=== PATIENT | male | born 1965 | race Caucasian/White ===

== ENCOUNTER 2022-05-08 15:03 | Emergency (ER) | payer SELFPAY ==
[~2022-05-08] VITALS: Ht 177.8 cm; Wt 90.7 kg
[2022-05-08 15:22] VITALS: BP 167/112
--- NOTE | 2022-05-08 15:30 | NUR ---
PT AMB TO BED 7
--- NOTE | 2022-05-08 15:50 | NUR ---
56YO MALE PT C/O HEADACHE AND DIZZINESS XYESTERDAY. REPORTS SUDDEN ONSET W/ RELIEF AFTER IBUPROFEN AND MOTRIN. STATES BEING RECOMMENDED BY URGENT CARE TO COME TO ER DUE TO HIGH BP OF 217/-. DENIES CHEST PAIN , SOB, N/V/D. PT AAOX4, SPEAKING IN FULL CLEAR SENTENCES. ON MANAGER PERFORMANCE IMPROVEMENT. HX: DENIES NKA
[2022-05-08 15:51] LABS: BASOPHILS % (AUTO) 0.3 % (0.0-2.0); EOSINOPHILS # (AUTO) 0.1 K/uL (0-0.4); EOSINOPHILS % (AUTO) 0.7 % (0.0-4.0); HEMATOCRIT 47.1 % (36-52); LYMPHOCYTES # (AUTO) 1.7 K/uL (2.0-11.5); LYMPHOCYTES % (AUTO) 24.2 % (20.5-51.1); MEAN CORPUSCULAR HEMOGLOBIN 28 pg (27-31); MEAN CORPUSCULAR HGB CONC 34 g/dL (33-37); MONOCYTES # (AUTO) 0.4 K/uL (0.8-1.0); MONOCYTES % (AUTO) 6.1 % (1.7-9.3); NEUTROPHILS # (AUTO) 4.7 K/uL (1.8-7.7); NEUTROPHILS % (AUTO) 68.7 % (42.2-75.2); PLATELET COUNT (AUTO) 217 K/uL (140-450); RED BLOOD CELL COUNT(AUTO) 5.75 MIL/uL (4.20-6.10); RED CELL DISTRIBUTION WIDTH 13.8 % (11.6-13.7); WHITE BLOOD COUNT (AUTO) 6.9 K/uL (4.8-10.8)
[2022-05-08 16:05] LABS: ANION GAP 9.7 (8-16); CARBON DIOXIDE 31.6 mmol/L (21-32); POTASSIUM 3.3 mmol/L (3.5-5.1)
--- NOTE | 2022-05-08 16:08 | NUR ---
PATIENT TAKEN TO CT VIA W/C
[2022-05-08] MEDS ORDERED: amLODIPine 5 MG TAB PO ONE (17:25)
[2022-05-08] MEDS ORDERED: amLODIPine 5 MG TAB ONE (17:30)
[2022-05-08 17:52] LABS: APPEARANCE,URINE CLEAR (CLEAR); BILIRUBIN,URINE NEGATIVE (NEGATIVE); BLOOD, URINE NEGATIVE (NEGATIVE); COLOR,URINE YELLOW (YELLOW); LEUKOCYTE ESTERASE ,URINE NEGATIVE (NEGATIVE); NITRITE, URINE NEGATIVE (NEGATIVE); UGLUCOSE NEGATIVE (NEGATIVE)
[2022-05-08] MEDS ORDERED: AMLO5TAB PO (17:59)
--- NOTE | 2022-05-08 18:20 | NUR ---
MADE AWARE OF UPDATED PT VITALS - OK FOR D/C
[2022-05-08 18:21] VITALS: BP 157/97
--- NOTE | 2022-05-08 18:21 | NUR ---
IV removed, catheter intact and site benign. Applied folded 4x4 gauze and tape to stop bleeding.
--- NOTE | 2022-05-08 18:21 | NUR ---
Patient discharged with v/s stable. Written and verbal after care instructions FOR HYPERTENSION, FOR/TENSION HEADACHE given and explained. Patient alert, oriented and verbalized understanding of instructions. Ambulatory with steady gait. All questions addressed prior to discharge. ID band removed. Patient advised to follow up with PMD. Rx of NORVASC given. Opportunity to ask questions provided and answered.
--- NOTE | 2022-05-08 18:22 | NUR ---
The patient's care was reviewed and supervised by Aury Glasgow RN.
== END 2022-05-08 18:21 | disposition home or self-care (01) ==
LOC: MED 15:03
DX: I10 Essential (primary) hypertension (principal); Z20.822 Contact with and (suspected) exposure to COVID-19; R51.9 Headache, unspecified; Z79.899 Other long term (current) drug therapy
CPT/HCPCS: 36415; 70450; 70496; 70498; 80048; 81003; 85025; 87426; 93005; 99285; Q9967

== ENCOUNTER 2022-06-29 19:02 | Emergency (ER) | payer SELFPAY ==
[~2022-06-29] VITALS: Ht 177.8 cm; Wt 88.5 kg
[~2022-06-29 19:02] MED LIST: AMLO5TAB PO
[2022-06-29 19:56] VITALS: BP 135/94
--- NOTE | 2022-06-29 20:01 | NUR ---
Pt triaged and placed in WR. No acute signs of distress.
--- NOTE | 2022-06-29 21:57 | NUR ---
PT AMBULATED TO BED 4
--- NOTE | 2022-06-29 22:05 | NUR ---
56 Y/O M PRESENTS WITH L FLANK PAIN 10/21 WITH CRAMPS AND SHARP, STABBING FEELING SINCE 6PM XYESTERDAY. PT STATES "I FEEL CONSTIPATED AND HAVENT GONE TO THE BATHROOM X2DAYS." PT STATED " WE USED A SALINE LAXATIVE WITH NO RELIEF AT HOME." PT STATED HE HAS SOME NAUSEA BUT DENIES VD. PT IS A&OX4, SKIN INTACT, RESPIRATIONS EVEN AND UNLABORED. PT STATED "HE HAD A TEMP WHEN WE GOT TO THE HOSPITAL." NO TEMP WAS DETECTED UPON NURSES ASSESSMENT. PMH- HTN AND APPENDECTOMY X30 YEARS AGO [facility]
--- NOTE | 2022-06-29 22:07 | NUR ---
ER ASSESSING PT
[2022-06-29] MEDS ORDERED: MIRABULK PO (22:18)
[2022-06-29] MEDS ORDERED: SODIUM PHOSPHATE 118 ML ENEM RC ONE (22:20)
[2022-06-29] MEDS ORDERED: MAGNESIUM HYDROXIDE 2400 MG/30 ML UDC PO ONE (22:45)
[2022-06-29] MEDS ORDERED: MINERAL OIL 135 ML ENEM RC ONE (22:45)
[2022-06-29] MEDS ORDERED: MAGN296S70 PO (23:28)
--- NOTE | 2022-06-29 23:43 | NUR ---
Patient discharged with v/s stable. Written and verbal after care instructions given and explained. Patient alert, oriented and verbalized understanding of instructions. Ambulatory with steady gait. All questions addressed prior to discharge. ID band removed. Patient advised to follow up with PMD. Rx of mAGNESIUM CITRATE AND POLYETHYLENE given. Opportunity to ask questions provided and answered.
--- NOTE | 2022-06-29 23:49 | NUR ---
DEJUAN JOHNSON NOTIFIED OF PT MEDS
== END 2022-06-29 23:43 | disposition home or self-care (01) ==
LOC: MED 19:02
DX: K59.00 Constipation, unspecified (principal); I10 Essential (primary) hypertension; Z79.899 Other long term (current) drug therapy; Z90.49 Acquired absence of other specified parts of digestive tract
CPT/HCPCS: 74018; 99283